=== PATIENT | female | born 1935 | race Two or more races ===

== ENCOUNTER 2022-09-24 09:25 | Outpatient (CLI) | payer MEDICARE, OTHER ==
[2022-09-24] MEDS ORDERED: LIDOCAINE SOLN 4% 50 ML BOTTLE ONE (09:46)
== END 2022-09-24 23:59 | disposition home health service (06) ==
LOC: WOU 09:25
PROVIDERS: ATTEND Podiatrist Foot & Ankle Surgery
DX: I70.235 Atherosclerosis of native arteries of right leg with ulceration of other part of foot (principal); L97.518 Non-pressure chronic ulcer of other part of right foot with other specified severity; E11.52 Type 2 diabetes mellitus with diabetic peripheral angiopathy with gangrene; I96 Gangrene, not elsewhere classified; M79.671 Pain in right foot; Z79.84 Long term (current) use of oral hypoglycemic drugs; Z79.82 Long term (current) use of aspirin
CPT/HCPCS: G0463

== ENCOUNTER 2022-10-01 10:07 | Outpatient (CLI) | payer MEDICARE, OTHER | END 2022-10-01 23:59 | disposition home health service (06) | LOC: WOU 10:07 | PROVIDERS: ATTEND Podiatrist Foot & Ankle Surgery | DX: I70.235 Atherosclerosis of native arteries of right leg with ulceration of other part of foot (principal); L97.518 Non-pressure chronic ulcer of other part of right foot with other specified severity; E11.52 Type 2 diabetes mellitus with diabetic peripheral angiopathy with gangrene; I96 Gangrene, not elsewhere classified; I70.221 Atherosclerosis of native arteries of extremities with rest pain, right leg; M79.671 Pain in right foot; Z79.84 Long term (current) use of oral hypoglycemic drugs | CPT/HCPCS: G0463 ==

== ENCOUNTER 2022-10-08 13:00 | Outpatient (CLI) | payer MEDICARE, OTHER | END 2022-10-08 23:59 | disposition home health service (06) | LOC: WOU 13:00 | PROVIDERS: ATTEND Podiatrist Foot & Ankle Surgery | DX: E11.52 Type 2 diabetes mellitus with diabetic peripheral angiopathy with gangrene (principal); L97.518 Non-pressure chronic ulcer of other part of right foot with other specified severity; I70.261 Atherosclerosis of native arteries of extremities with gangrene, right leg; Z79.84 Long term (current) use of oral hypoglycemic drugs | CPT/HCPCS: G0463 ==

== ENCOUNTER 2022-10-11 09:09 | Outpatient (CLI) | payer MEDICARE, OTHER ==
[2022-10-11] MEDS ORDERED: LIDOCAINE SOLN 4% 50 ML BOTTLE ONE (09:20)
== END 2022-10-11 23:59 | disposition home health service (06) ==
LOC: WOU 09:09
PROVIDERS: ATTEND Podiatrist Foot & Ankle Surgery
DX: E11.52 Type 2 diabetes mellitus with diabetic peripheral angiopathy with gangrene (principal); I96 Gangrene, not elsewhere classified; Z79.84 Long term (current) use of oral hypoglycemic drugs; I70.221 Atherosclerosis of native arteries of extremities with rest pain, right leg; I70.235 Atherosclerosis of native arteries of right leg with ulceration of other part of foot; L97.528 Non-pressure chronic ulcer of other part of left foot with other specified severity; M79.671 Pain in right foot; Z79.82 Long term (current) use of aspirin
CPT/HCPCS: G0463

== ENCOUNTER 2022-10-15 09:21 | Outpatient (CLI) | payer MEDICARE, OTHER ==
[~2022-10-15 09:21] MED LIST: LIDOCAINE SOLN 4% 50 ML BOTTLE ONE
[2022-10-15] MEDS ORDERED: EMPA25TA PO (11:08)
[2022-10-15] MEDS ORDERED: ICOS1CAP PO (11:08)
[2022-10-15] MEDS ORDERED: ASPI-1169 PO (11:08)
[2022-10-15] MEDS ORDERED: NAPR-1009 PO (11:08)
[2022-10-15] MEDS ORDERED: CARV25TA2 PO (11:08)
[2022-10-15] MEDS ORDERED: HYDR-3972 PO (11:08)
[2022-10-15] MEDS ORDERED: METF-440 PO (11:08)
== END 2022-10-15 23:59 | disposition home health service (06) ==
LOC: WOU 09:21
PROVIDERS: ATTEND Podiatrist Foot & Ankle Surgery
DX: E11.52 Type 2 diabetes mellitus with diabetic peripheral angiopathy with gangrene (principal); I96 Gangrene, not elsewhere classified; Z79.84 Long term (current) use of oral hypoglycemic drugs; I70.235 Atherosclerosis of native arteries of right leg with ulceration of other part of foot; L97.528 Non-pressure chronic ulcer of other part of left foot with other specified severity; I70.221 Atherosclerosis of native arteries of extremities with rest pain, right leg; M79.671 Pain in right foot; Z79.82 Long term (current) use of aspirin
CPT/HCPCS: 82962; G0463

== ENCOUNTER 2022-10-15 09:56 | Inpatient (IN) | payer MEDICARE, OTHER ==
[~2022-10-15] VITALS: Ht 154.9 cm; Wt 68.2 kg
--- NOTE | 2022-10-15 10:00 | NUR ---
REceived pt 87 yrs female transfer from wound care center for evaliation on gangarine on rt big toe for 3 month and sob for 3 days and for medcale clearance for surger
--- NOTE | 2022-10-15 10:02 | NUR ---
CAME WITH PICC ON RT UPPER ARM PT CAME WITH SON AT BED SIDE
--- NOTE | 2022-10-15 10:05 | NUR ---
PICC CONSTANCE ABLE TO FLASH NS NOT BLOOD DROW
--- NOTE | 2022-10-15 10:20 | NUR ---
BLOOD DROW BY LAB TACH AND BLOOD CUTURE X 2 DONE , COVID MILVIA SENT TO LAB
[2022-10-15 10:46] LABS: BASOPHILS % (AUTO) 0.3 % (0.0-2.0); HEMOGLOBIN 9.4 g/dL (11.5-14.8); MEAN CORPUSCULAR HGB CONC 30 g/dl (31.0-36.0)
[2022-10-15 11:00] LABS: EOSINOPHILS % (AUTO) 0.3 % (0.0-6.0); HEMATOCRIT 31 % (33-45); LYMPHOCYTES % (AUTO) 19.8 % (20.0-44.0); MEAN CORPUSCULAR VOLUME 70 fL (82-100); MONOCYTES # (AUTO) 0.5 K/uL (0.1-1.30); MONOCYTES % (AUTO) 10.4 % (2.0-12.0); NEUTROPHILS # (AUTO) 3.5 K/uL (1.8-8.9); NEUTROPHILS % (AUTO) 69.2 % (43.0-81.0); PLATELET COUNT (AUTO) 577 K/uL (150-450); RED BLOOD CELL COUNT(AUTO) 4.47 MIL/uL (4.0-5.2)
[2022-10-15] MEDS ORDERED: ICOS1CAP PO (11:08)
[2022-10-15] MEDS ORDERED: EMPA25TA PO (11:08)
[2022-10-15] MEDS ORDERED: NAPR-1009 PO (11:08)
[2022-10-15] MEDS ORDERED: ASPI-1169 PO (11:08)
[2022-10-15] MEDS ORDERED: HYDR-3972 PO (11:08)
[2022-10-15] MEDS ORDERED: METF-440 PO (11:08)
[2022-10-15] MEDS ORDERED: CARV25TA2 PO (11:08)
--- NOTE | 2022-10-15 11:09 | NUR ---
SON AT BED SIDE WILFRED ( SON ) AND NESTOR YANEZ
[2022-10-15 11:16] LABS: CALCIUM, SERUM 7.8 mg/dL (8.5-10.1); CARBON DIOXIDE 28 mmol/L (21-32); CHLORIDE 106 mmol/L (98-107); CREATININE 0.5 mg/dL (0.6-1.3); GLUCOSE 129 mg/dL (74-106); POTASSIUM 4.3 mmol/L (3.5-5.1); SODIUM SERUM 137 mmol/L (136-145); UREA NITROGEN, BLOOD 15 mg/dL (7-18)
--- NOTE | 2022-10-15 11:16 | NUR ---
CALLED NURSING SUP REGARDING PT BED
[2022-10-15 11:21] LABS: ALANINE AMINOTRANSFERASE 17 U/L (12-78); ALBUMIN 1.7 g/dL (3.4-5.0); ALKALINE PHOSPHATASE 108 U/L (46-116); ASPARTATE AMINOTRANSFERASE 34 U/L (15-37); BILIRUBIN,DIRECT 0.1 mg/dL (0.0-0.2); BILIRUBIN,TOTAL 0.2 mg/dL (0.2-1.0); TOTAL PROTEIN, SERUM 5.1 g/dL (6.4-8.2)
[2022-10-15] MEDS ORDERED: Z GUARD REMEDY 4 OZ OINT TP PRN (11:30)
[2022-10-15] MEDS ORDERED: MAG HYDROX/AL HYDROX/SIMETH 30 ML UDC PO PRN (11:30)
[2022-10-15] MEDS ORDERED: DEXTROSE 50%-WATER 50 ML DISP.SYRIN IV PRN (11:30)
[2022-10-15] MEDS ORDERED: HYDROCODONE/APAP 5/325MG TABLET PO PRN (11:30)
[2022-10-15] MEDS ORDERED: ONDANSETRON HCL/PF 4 MG/2 ML VIAL IVP PRN (11:30)
[2022-10-15] MEDS ORDERED: MAGNESIUM HYDROXIDE 30 ML UDC PO PRN (11:30)
[2022-10-15] MEDS ORDERED: ZOLPIDEM TARTRATE 5 MG TABLET PO PRN (11:30)
[2022-10-15] MEDS ORDERED: ACETAMINOPHEN 325 MG TABLET PO PRN (11:30)
--- NOTE | 2022-10-15 11:56 | NUR ---
BED GIVEN 306-2
[2022-10-15] MEDS: BLOOD SUGAR DIAGNOSTIC 1 EACH STRIP IN SCH ×3 (12:22→22:00)
--- NOTE | 2022-10-15 12:56 | NUR ---
HAND OFF JOANNA .Bacilio RN TO ROOM 306-2 VIA GARJERMAINE STABLE VS AWAKE AND ALERT
[2022-10-15] MEDS ORDERED: MEROPENEM 1 G in IV NS 0.9% 100 ML IV SCH (13:00)
[2022-10-15] MEDS ORDERED: FUROSEMIDE 20 MG/2 ML VIAL IV ONE (13:00)
[2022-10-15] MEDS ORDERED: ASPIRIN 81 MG TAB.CHEW ONE (13:06)
[2022-10-15] MEDS: ASPIRIN 81 MG TAB.CHEW PO SCH (13:07)
--- NOTE | 2022-10-15 13:30 | NUR ---
TELEMETRY ADMIT FROM ER AFTER REPORT RECEIVED FROM MARTIN RN. PATIENT ORIENTED TO PRIMARY RN, UNIT, ROOM, BED, AND UNIT POLICIES REGARDING PATIENT CARE AND VISITING HOURS. PATIENT NOW ON CONTINUOUS TELEMETRY MONITORING. READING ON ARRIVAL IS AFIB 79. PATIENT PLACED ON BEDSIDE OXYGEN, WEIGHED BY BEDSCALE AND ENCOURAGED TO CALL IF THEY NEED SOMETHING. ALL QUESTIONS AND CONCERNS ADDRESSED, PATIENT VERBALIZED UNDERSTANDING.
[2022-10-15 16:00] VITALS: BP 127/75
[2022-10-15] MEDS: MEROPENEM 1 G in IV NS 0.9% 100 ML IV SCH (16:13)
[2022-10-15] MEDS ORDERED: Medication Not On Formulary EA (Icosapent Ethyl (Vascepa) 2 GM) PO SCH (17:00)
[2022-10-15] MEDS: INSULIN REGULAR, HUMAN 100 UNIT/ML 3 ML VIAL SQ PRN (17:50)
--- NOTE | 2022-10-15 18:19 | NUR ---
CHANGE OF SHIFT REPORT PATIENT RESTING COMFORTABLY IN BED. NO S/S OR C/O PAIN OR DISTRESS NOTED. SIDE RAILS UP X2, CALL LIGHT LEFT WITHIN REACH. PT KEPT CLEAN, DRY, AND COMFORTABLE. NO SIGNIFICANT CHANGES SINCE ADMISSION WILL GIVE REPORT TO SHAWNA RN.
--- NOTE | 2022-10-15 19:30 | NUR ---
TELERN AWAKE, RESTING UNDERSTANDS BASIC AZERI. NO SOB, O2 MAINTAINED ALL NEEDS ATTENDED. A FIB ON THE MONITOR. SAFETY PRECAUTIONS EMPHASIZED PLAN OF CARE. APPEARS TO UNDERSTAND. CONTINUED MONITORING
[2022-10-15 20:00] VITALS: BP 127/70
[2022-10-15] MEDS: VANCOMYCIN 1 GM in IV D5W 250ml IV SCH (21:10)
[2022-10-15] MEDS: CARVEDILOL 12.5 MG TABLET PO SCH (21:47)
--- NOTE | 2022-10-15 22:20 | NUR ---
TELERN DUE MEDS ADMINISTERED, AWARE IF MEDS SHE TAKES, V/S STABLE. ENCOURAGED TO SPACE ACTIVITY, OFFERED BSC, DECLINED FOR NOW.
[2022-10-16 02:25] VITALS: BP 111/72
[2022-10-16] MEDS: MEROPENEM 1 G in IV NS 0.9% 100 ML IV SCH (04:51)
--- NOTE | 2022-10-16 04:53 | NUR ---
TELERN RIGHT ARM SWOLLEN WARM AND RED, ELEVATED, COLD AND WARM COMPRESS, MONITORED. INFORMED [facility] DIRECTOR FIRE SPRINKLER APPARATUS INSPECTOR. FOR VENOUS DUPLEX TODAY.
[2022-10-16 05:00] VITALS: BP 125/61
[2022-10-16] MEDS: BLOOD SUGAR DIAGNOSTIC 1 EACH STRIP IN SCH ×4 (05:51→21:33)
--- NOTE | 2022-10-16 05:51 | NUR ---
TELERN ASSISTED TO RESTROOM, VOIDED 500 CC , SOB ON MIN EXERTION. REMAINS AFIB CONTROLLED RATE OF 89 .CONTINUED MONITORING
[2022-10-16 06:19] LABS: BASOPHILS % (AUTO) 1.1 % (0.0-2.0); EOSINOPHILS % (AUTO) 0.5 % (0.0-6.0); HEMATOCRIT 29 % (33-45); HEMOGLOBIN 8.8 g/dL (11.5-14.8); LYMPHOCYTES # (AUTO) 0.8 K/uL (0.8-4.8); LYMPHOCYTES % (AUTO) 17.8 % (20.0-44.0); MEAN CORPUSCULAR HGB CONC 30 g/dl (31.0-36.0); MEAN CORPUSCULAR VOLUME 71 fL (82-100); MONOCYTES # (AUTO) 0.5 K/uL (0.1-1.30); NEUTROPHILS # (AUTO) 3.1 K/uL (1.8-8.9); NEUTROPHILS % (AUTO) 69.6 % (43.0-81.0); PLATELET COUNT (AUTO) 576 K/uL (150-450); RED BLOOD CELL COUNT(AUTO) 4.16 MIL/uL (4.0-5.2); WHITE BLOOD COUNT (AUTO) 4.5 K/uL (4.3-11.0)
[2022-10-16 06:33] LABS: CALCIUM, SERUM 7.7 mg/dL (8.5-10.1); CARBON DIOXIDE 28 mmol/L (21-32); CHLORIDE 105 mmol/L (98-107); CREATININE 0.5 mg/dL (0.6-1.3); GLUCOSE 97 mg/dL (74-106); MAGNESIUM 2.2 mg/dL (1.8-2.4); PHOSPHORUS 3.1 mg/dL (2.5-4.9); POTASSIUM 4.1 mmol/L (3.5-5.1); SODIUM SERUM 137 mmol/L (136-145); UREA NITROGEN, BLOOD 11 mg/dL (7-18)
[2022-10-16 07:00] VITALS: BP 128/67
--- NOTE | 2022-10-16 07:50 | NUR ---
RN OPENING NOTE PATIENT AWAKE IN BED RESTING, A/O X 3. NO S/S OF PAIN NOTED AT THIS TIME. ON 2L OXYGEN VIA NC, BREATHING EVEN UNLABORED, NO DISTRESS OR SHORTNESS OF BREATH NOTED AT THIS TIME. IV ACCESS ANDREWS PICC-LINE, INTACT PATENT AND FLUSHING WELL. PATIENT WITH EXTERNAL ADVICE LINE RN WITH CURRENT READING OF A-FIB AND HR OF 86, NO CARDIAC DISTRESS NOTED. FALL AND SAFETY MEASURES IN PLACE, BED ALARM ON, BED IN LOW AND LOCK POSITION, CALL LIGHT AND TABLE WITHIN EASY REACH, SIDE RAILS UP X2. WILL CONTINUE TO MONITOR.
--- NOTE | 2022-10-16 08:10 | NUR ---
WOUND CARE CONSULT: PT EATING BREAKFAST AT THIS TIME. PT IS AMBULATORY WITH ASSISTANCE AND CONTINENT. DR DEL VALLE NOTIFIED OF PT ROOM NUMBER AND ADMISSION. MD IN AGREEMENT WITH PLAN OF CARE.
[2022-10-16] MEDS: FUROSEMIDE 40 MG/4 ML VIAL IV SCH ×4 (09:14→17:45)
[2022-10-16] MEDS: POTASSIUM CHLORIDE 20 MEQ TAB.PRT.SR PO SCH ×3 (09:15→11:00)
[2022-10-16] MEDS: EMPAGLIFLOZIN 25 MG TABLET PO SCH (09:15)
[2022-10-16] MEDS: CARVEDILOL 12.5 MG TABLET PO SCH ×2 (09:15→21:37)
[2022-10-16 10:40] LABS: THYROID STIMULATING HORMONE 2.089 uIU/mL (0.358-3.74)
[2022-10-16 12:00] VITALS: BP 129/63
[2022-10-16] MEDS: CEFEPIME 2 GM in IV D5W 100 ML IV SCH ×3 (14:11→21:56)
[2022-10-16] MEDS ORDERED: ENOXAPARIN SODIUM 40 MG/0.4 ML DISP.SYRIN SQ SCH (14:30)
[2022-10-16 16:00] VITALS: BP 106/60
--- NOTE | 2022-10-16 19:49 | NUR ---
RN CLOSING NOTE PATIENT AWAKE IN BED RESTING, A/O X 3. NO S/S OF PAIN NOTED AT THIS TIME. ON 2L OXYGEN VIA NC, BREATHING EVEN UNLABORED, NO DISTRESS OR SHORTNESS OF BREATH NOTED AT THIS TIME. IV ACCESS ANDREWS PICC-LINE, INTACT PATENT AND FLUSHING WELL. PATIENT WITH EXTERNAL WEED COOKING OPERATOR WITH CURRENT READING OF A-FIB AND HR OF 94, NO CARDIAC DISTRESS NOTED. SCHEDULE MEDICATIONS ADMINISTERED. WOUND CARE IMPLEMENTED. FALL AND SAFETY MEASURES IN PLACE, BED ALARM ON, BED IN LOW AND LOCK POSITION, CALL LIGHT AND TABLE WITHIN EASY REACH, SIDE RAILS UP X2. ALL NEEDS ATTENDED AND ANTICIPATED. WILL ENDORSE TO CONCRETE TILE MACHINE OPERATOR NURSE.
[2022-10-16] MEDS: VANCOMYCIN 1 GM in IV D5W 250ml IV SCH (20:19)
[2022-10-16] MEDS ORDERED: ENOXAPARIN SODIUM 80 MG/0.8 ML DISP.SYRIN SQ SCH (21:00)
[2022-10-16] MEDS: INSULIN REGULAR, HUMAN 100 UNIT/ML 3 ML VIAL SQ PRN (21:35)
[2022-10-17 00:11] VITALS: BP 108/54
[2022-10-17] MEDS: CEFEPIME 2 GM in IV D5W 100 ML IV SCH ×3 (05:27→21:48)
[2022-10-17 06:00] LABS: BASOPHILS % (AUTO) 0.5 % (0.0-2.0); EOSINOPHILS % (AUTO) 0.8 % (0.0-6.0); HEMATOCRIT 28 % (33-45); HEMOGLOBIN 8.6 g/dL (11.5-14.8); LYMPHOCYTES # (AUTO) 0.8 K/uL (0.8-4.8); LYMPHOCYTES % (AUTO) 17.5 % (20.0-44.0); MEAN CORPUSCULAR HGB CONC 31 g/dl (31.0-36.0); MEAN CORPUSCULAR VOLUME 69 fL (82-100); MONOCYTES # (AUTO) 0.6 K/uL (0.1-1.30); MONOCYTES % (AUTO) 13.4 % (2.0-12.0); NEUTROPHILS % (AUTO) 67.8 % (43.0-81.0); PLATELET COUNT (AUTO) 540 K/uL (150-450); RED BLOOD CELL COUNT(AUTO) 4.05 MIL/uL (4.0-5.2); WHITE BLOOD COUNT (AUTO) 4.4 K/uL (4.3-11.0)
[2022-10-17 06:14] LABS: ALANINE AMINOTRANSFERASE 12 U/L (12-78); ALBUMIN 1.5 g/dL (3.4-5.0); ALKALINE PHOSPHATASE 89 U/L (46-116); ASPARTATE AMINOTRANSFERASE 12 U/L (15-37); BILIRUBIN,TOTAL 0.2 mg/dL (0.2-1.0); CALCIUM, SERUM 7.6 mg/dL (8.5-10.1); CARBON DIOXIDE 34 mmol/L (21-32); CHLORIDE 103 mmol/L (98-107); CREATININE 0.5 mg/dL (0.6-1.3); GLUCOSE 104 mg/dL (74-106); PHOSPHORUS 3.2 mg/dL (2.5-4.9); POTASSIUM 3.6 mmol/L (3.5-5.1); SODIUM SERUM 140 mmol/L (136-145); TOTAL PROTEIN, SERUM 4.9 g/dL (6.4-8.2); UREA NITROGEN, BLOOD 11 mg/dL (7-18)
--- NOTE | 2022-10-17 06:18 | NUR ---
END OF SHIFT REPORT Patient in bed, Alert Oriented x3. Oxygen sat high 90's in 2L NC. Ambulating to the bathroom FWW, denies sob with exertion. ANDREWS Midline intact, On IV abx. Afebrile during the shift. Right toe gangrene, dressing C/D/I. Fall precaution maintained. Plan for US Thoracentesis, Right great toe amputation. Will endorse to oncoming RN. Addendum: 10/17/22 at 0620 by GALILEO SUMMERS RN CONTINUE NOTES BELOW AFib controlled in the Tele monitor HR 80's. Patient denies chest pain.
[2022-10-17] MEDS: BLOOD SUGAR DIAGNOSTIC 1 EACH STRIP IN SCH ×4 (06:58→22:14)
[2022-10-17] MEDS: INSULIN REGULAR, HUMAN 100 UNIT/ML 3 ML VIAL SQ PRN ×2 (06:58→22:47)
[2022-10-17 07:00] VITALS: BP 110/51
--- NOTE | 2022-10-17 07:55 | NUR ---
RN OPENING NOTE PATIENT AWAKE IN BED RESTING, A/O X 3. NO S/S OF PAIN NOTED AT THIS TIME. ON 2L OXYGEN VIA NC, BREATHING EVEN UNLABORED, NO DISTRESS OR SHORTNESS OF BREATH NOTED AT THIS TIME. IV ACCESS VIRGIE MIDLINE, INTACT PATENT AND FLUSHING WELL. PATIENT WITH EXTERNAL BOAT CREW DECK HAND WITH CURRENT READING OF A-FIB AND HR OF 86, NO CARDIAC DISTRESS NOTED. FALL AND SAFETY MEASURES IN PLACE, BED ALARM ON, BED IN LOW AND LOCK POSITION, CALL LIGHT AND TABLE WITHIN EASY REACH, SIDE RAILS UP X2. WILL CONTINUE TO MONITOR.
[2022-10-17] MEDS: EMPAGLIFLOZIN 25 MG TABLET PO SCH (08:46)
[2022-10-17] MEDS: CARVEDILOL 12.5 MG TABLET PO SCH ×4 (08:46→22:14)
[2022-10-17 10:10] LABS: LYMPHOCYTES % (MANUAL) 19 % (16-48); MONOCYTES % (MANUAL) 13 % (0-11.0); NEUTROPHILS % (MANUAL) 68 (42-76)
--- NOTE | 2022-10-17 10:30 | NUR ---
RN NOTE PATIENT THORACENTESIS WAS DONE TODAY, PATIENT TOLERATED PROCEDURE WELL, PATIENT V/S WERE TAKEN, STABLE, CHEST X-RAY ORDERED, PATIENT IS RESTING IN ROOM COMFORTABLY.
[2022-10-17] MEDS: ASPIRIN 81 MG TAB.CHEW PO SCH (11:30)
[2022-10-17 12:00] VITALS: BP 99/75
[2022-10-17 16:00] VITALS: BP 98/56
--- NOTE | 2022-10-17 18:53 | NUR ---
RN CLOSING NOTE PATIENT AWAKE IN BED RESTING, A/O X 3. NO S/S OF PAIN NOTED AT THIS TIME. ON 2L OXYGEN VIA NC, BREATHING EVEN UNLABORED, NO DISTRESS OR SHORTNESS OF BREATH NOTED AT THIS TIME. IV ACCESS ANDREWS PICC-LINE, INTACT PATENT AND FLUSHING WELL. PATIENT WITH EXTERNAL DIVISION SUPERVISOR WITH CURRENT READING OF A-FIB AND HR OF 94, NO CARDIAC DISTRESS NOTED. SCHEDULE MEDICATIONS ADMINISTERED. WOUND CARE IMPLEMENTED. FALL AND SAFETY MEASURES IN PLACE, BED ALARM ON, BED IN LOW AND LOCK POSITION, CALL LIGHT AND TABLE WITHIN EASY REACH, SIDE RAILS UP X2. ALL NEEDS ATTENDED AND ANTICIPATED. WILL ENDORSE TO INSURANCE ADMINISTRATOR NURSE.
--- NOTE | 2022-10-17 19:30 | NUR ---
AREA COUNSELOR OPENING NOTES RECEIVED PATIENT AWAKE IN BED RESTING, A/O X 3. NO S/S OF PAIN NOTED AT THIS TIME. ON 2L OXYGEN VIA NC, BREATHING EVEN UNLABORED, NO DISTRESS OR SHORTNESS OF BREATH NOTED AT THIS TIME. IV ACCESS VIRGIE MIDLINE, INTACT PATENT AND FLUSHING WELL. PATIENT WITH EXTERNAL CUPOLA CHARGER WITH CURRENT READING OF A-FIB AND HR OF 93, NO CARDIAC DISTRESS NOTED. FALL AND SAFETY MEASURES IN PLACE, BED ALARM ON, BED IN LOW AND LOCK POSITION, CALL LIGHT AND TABLE WITHIN EASY REACH, SIDE RAILS UP X2. WILL CONTINUE TO MONITOR.
[2022-10-17 20:00] VITALS: BP_SYST 106; BP_SYST 110; BP_DIAS 38; BP_DIAS 60
[2022-10-17] MEDS: VANCOMYCIN 1 GM in IV D5W 250ml IV SCH (20:05)
[2022-10-17] MEDS: ZOLPIDEM TARTRATE 5 MG TABLET PO PRN (22:19)
--- NOTE | 2022-10-17 22:25 | NUR ---
RN NOTES- AMBIEN GIVEN PATIENT ASKED FOR SLEEPING PILL INSTEAD OF PAIN PILL. AMBIEN 5MG GIVEN PRN PER DR. RAY. PATIENT VERBALIZED THAT PAIN PILLS CAUSE BAD SIDE EFFECTS ON HER. WILL CONTINUE TO MONITOR PATIENT.
[2022-10-18] VITALS (37 sets, daily range): BP systolic 92–137; BP diastolic 40–75
[2022-10-18] MEDS: CEFEPIME 2 GM in IV D5W 100 ML IV SCH (04:12)
[2022-10-18 05:59] LABS: CALCIUM, SERUM 7.5 mg/dL (8.5-10.1); CARBON DIOXIDE 33 mmol/L (21-32); CHLORIDE 102 mmol/L (98-107); CREATININE 0.5 mg/dL (0.6-1.3); GLUCOSE 110 mg/dL (74-106); POTASSIUM 3.7 mmol/L (3.5-5.1); SODIUM SERUM 138 mmol/L (136-145); UREA NITROGEN, BLOOD 10 mg/dL (7-18)
[2022-10-18 06:05] LABS: BASOPHILS % (AUTO) 0.6 % (0.0-2.0); EOSINOPHILS % (AUTO) 1.2 % (0.0-6.0); HEMATOCRIT 26 % (33-45); HEMOGLOBIN 8.1 g/dL (11.5-14.8); LYMPHOCYTES # (AUTO) 0.9 K/uL (0.8-4.8); LYMPHOCYTES % (AUTO) 19.4 % (20.0-44.0); MEAN CORPUSCULAR HGB CONC 31 g/dl (31.0-36.0); MEAN CORPUSCULAR VOLUME 69 fL (82-100); MONOCYTES # (AUTO) 0.5 K/uL (0.1-1.30); MONOCYTES % (AUTO) 12.2 % (2.0-12.0); NEUTROPHILS % (AUTO) 66.6 % (43.0-81.0); PLATELET COUNT (AUTO) 509 K/uL (150-450); RED BLOOD CELL COUNT(AUTO) 3.84 MIL/uL (4.0-5.2); WHITE BLOOD COUNT (AUTO) 4.5 K/uL (4.3-11.0)
[2022-10-18] MEDS: BLOOD SUGAR DIAGNOSTIC 1 EACH STRIP IN SCH ×4 (06:39→21:11)
[2022-10-18] MEDS: INSULIN REGULAR, HUMAN 100 UNIT/ML 3 ML VIAL SQ PRN ×2 (06:40→17:39)
--- NOTE | 2022-10-18 06:51 | NUR ---
RN NOTES PATIENT FOR RIGHT GREAT TOE AMPUTATION, CONSENTS SIGNED. NPO SINCE MIDNIGHT. V/S STABLE AND BLOOD SUGAR LEVEL IS 104. DAUGHTER WAS INFORMED LAST NIGHT. WILL ENDORSE TO THE NEXT SHIFT.
--- NOTE | 2022-10-18 06:57 | NUR ---
[place] ATTORNEY CLOSING NOTES PATIENT AWAKE AND ALERT. A/O X 4. ON RA, BREATHING EVEN UNLABORED, NO DISTRESS OR SHORTNESS OF BREATH NOTED AT THIS TIME. IV ACCESS VIRGIE MIDLINE, INTACT PATENT AND FLUSHING WELL. PATIENT WITH EXTERNAL DRAG OUT MAN WITH CURRENT READING OF A-FIB AND HR OF 98, NO CARDIAC DISTRESS NOTED. ALL DUE IV MEDS GIVEN. NPO SINCE MIDNIGHT. FALL AND SAFETY MEASURES MAINTAINED, BED ALARM ON, BED IN LOW AND LOCK POSITION, CALL LIGHT AND TABLE WITHIN EASY REACH, SIDE RAILS UP X2. WILL ENDORSE TO THE NEXT SHIFT.
--- NOTE | 2022-10-18 07:07 | NUR ---
CORRECTIONAL SUBSTANCE ABUSE COUNSELOR OPENING NOTES RECEIVED PATIENT AWAKE IN BED, A/Ox3-4, ABLE TO MAKE NEEDS KNOWN, L EYE BLINDNESS. ON 2L O2 VIA NC, NO S/S OF RESPIRATORY DISTRESS. ON TELE MONITORING SHOWING SINUS RHYTHM HR 96. IV ACCESS VIRGIE MIDLINE S/L. INTACT AND PATENT. PATIENT CONTINENT WITH BRP, USES FWW. PATIENT TAKEN DOWN FOR SURGERY @0705, ACCOMPANIED BY TWO OR STAFF. WILL WAIT FOR PATIENT TO RETURN.
[2022-10-18] MEDS ORDERED: ANESTHESIA TRAY IN PYXIS 1 EA TRAY MC ONE (07:16)
[2022-10-18] MEDS ORDERED: LIDOCAINE 1% INJ 50 ML MDV IJ ONE (07:17)
[2022-10-18] MEDS ORDERED: BUPIVACAINE 0.25% 75 MG/30 ML VIAL ONE (07:17)
[2022-10-18] MEDS ORDERED: BUPIVACAINE 0.5 % PF 150 MG/30 ML VIAL ONE (07:17)
[2022-10-18] MEDS: CARVEDILOL 12.5 MG TABLET PO SCH ×3 (09:00→21:02)
[2022-10-18] MEDS: EMPAGLIFLOZIN 25 MG TABLET PO SCH (09:00)
--- NOTE | 2022-10-18 09:00 | NUR ---
RN NOTES RECEIVED PT FROM OR FOR CLOSE MONITORING , PT IS DRAWZY , FOLLOWS SIMPLE COMMAND, ON 2L O2 N/C , O2 SAT WNL, ON TELE SR HR IN 80'S , IV SITE CDI, SR UP x3, CALL LIGHT WITHIN EASY REACH, BED LOCKED AND IN LOWEST POSITION, CONTINUE TO MONITOR
[2022-10-18 10:38] LABS: ABG BASE EXCESS 2.8 mmol/L; ABG OXYGEN SATURATION 95.5 % (92.0-98.5); ABG PCO2 43.5 mmHg (35.0-45.0); ABG PO2 89.5 mmHg (75.0-100.0); AaDO2 73.3 mmHg; COHb 0.1 % (0.5-1.5); MetHb 0.1 % (0.0-1.5); O2Hb 95.3 % (94.0-97.0); VENT MODE, BG N/C
--- NOTE | 2022-10-18 11:00 | NUR ---
RN NOTES PT VERY SENSETIVE TO HAVE BP CUFF ON HER ARM , REFUSED TO HAVE IT ON THE ARMS , BP CUFF PLACED ON LEFT CALF .
[2022-10-18 13:30] LABS: EOSINOPHILS % (MANUAL) 3 % (0-4); LYMPHOCYTES % (MANUAL) 17 % (16-48); MONOCYTES % (MANUAL) 11 % (0-11.0); NEUTROPHILS % (MANUAL) 69 (42-76)
--- NOTE | 2022-10-18 16:14 | NUR ---
RN NOTES PT VOIDED 30 CC URINE OUTPUT , C/O PAIN ON HER ABD, HERNANDEZ INSERTED PER HEAD AND NECK SURGEON ORDER , 350 CC YELLOW CLEAR , URINE OUT PUT DRAINED TO THE BAG, HEAD AND NECK SURGEON NOTIFIED
--- NOTE | 2022-10-18 18:00 | NUR ---
RN NOTES PT AWAKE AND ALERT , VSS STABLE, SON AT THE BEDSIDE, NO DISTRESS NOTED, NO SIGNFICANT CHANGES NOTED , WILL ENDORSE TO DIVIDING MACHINE OPERATOR NURSE FOR CONTINUITY OF CARE
[2022-10-18] MEDS: ZOLPIDEM TARTRATE 5 MG TABLET PO PRN (21:10)
--- NOTE | 2022-10-18 21:29 | NUR ---
RN NOTE Patient in bed, on high ibarra's, AO x 3, in no acute distress, breathing unlabored, Afib on the monitor, HR is 96. VIRGIE midline patent and flushing well, saline locked. Wound dressing at R big toe clean, dry and intact. Safety measures in place, bed is locked and at lowest position, HOB elevated, bed alarm on, call light within reach of patient. Will continue to monitor and reassess.
--- NOTE | 2022-10-18 22:08 | NUR ---
RN NOTE Report given to Sharon for continuation of care
[2022-10-19] VITALS (23 sets, daily range): BP systolic 90–158; BP diastolic 40–112
[2022-10-19 05:11] LABS: CALCIUM, SERUM 7.8 mg/dL (8.5-10.1); CARBON DIOXIDE 32 mmol/L (21-32); CHLORIDE 104 mmol/L (98-107); CREATININE 0.6 mg/dL (0.6-1.3); GLUCOSE 100 mg/dL (74-106); SODIUM SERUM 139 mmol/L (136-145); UREA NITROGEN, BLOOD 12 mg/dL (7-18)
--- NOTE | 2022-10-19 05:33 | NUR ---
RN NOTE Assumed care, patient tolerating 3L via NC, saturation at 97%, afib on the monitor HR is 83, awaiting CXR result. will cont to monitor.
[2022-10-19] MEDS: BLOOD SUGAR DIAGNOSTIC 1 EACH STRIP IN SCH ×4 (07:24→21:32)
--- NOTE | 2022-10-19 07:50 | NUR ---
ICU/RN PT STABLE ON 2L O2 NC.
[2022-10-19] MEDS: EMPAGLIFLOZIN 25 MG TABLET PO SCH (08:03)
[2022-10-19] MEDS: CARVEDILOL 12.5 MG TABLET PO SCH ×2 (08:03→21:32)
--- NOTE | 2022-10-19 10:36 | NUR ---
ICU/RN REPORT GIVEN TO KAL LOCKE.
[2022-10-19] MEDS: ASPIRIN 81 MG TAB.CHEW PO SCH (10:37)
--- NOTE | 2022-10-19 11:35 | NUR ---
Patient arrived as transfer from ICU, bed 254, via bed, alert and oriented x 4,calm, denying pain,no SOB on oxygen via nasal cannula @ 2 LPM. Vital signs stable. Afebrile. Safety precautions in place : bed alarm on; bed brakes locked on; bed in lowest position; bed side rails up x 3; and call stephenson/light within pt's reach. Will continue to care for and monitor patient per hospitalist POC.
[2022-10-19] MEDS: INSULIN REGULAR, HUMAN 100 UNIT/ML 3 ML VIAL SQ PRN ×3 (12:54→23:04)
[2022-10-19] MEDS: GLUCERNA SHAKE 237 ML CAN PO SCH (17:39)
--- NOTE | 2022-10-19 18:52 | NUR ---
FRUIT PACKER CLOSING NOTE: PATIENT AWAKE AND ALERT. A/O X 4. ON OXYGEN @ 2 LPM VIA NC. BREATHING IS EVEN AND UNLABORED. NO DISTRESS OR SHORTNESS OF BREATH NOTED AT THIS TIME. IV ACCESS VIRGIE MIDLINE, INTACT PATENT AND FLUSHING WELL. PATIENT WITH EXTERNAL ASSOCIATE PROFESSOR OF FORESTRY WITH CURRENT READING OF A-FIB CONTROLLED WITH HR FLUCTUATING IN 80S TO 100S. NO CARDIAC DISTRESS NOTED. ALL DUE MEDS GIVEN. FALL AND SAFETY MEASURES MAINTAINED, BED ALARM ON, BED IN LOW AND LOCK POSITION, CALL LIGHT AND TABLE WITHIN EASY REACH, SIDE RAILS UP X2. WILL ENDORSE TO PRIVATE INQUIRY AGENT RNGALINDO, FOR ERIN.
--- NOTE | 2022-10-19 19:40 | NUR ---
DESIGN CELL ENGINEER OPENING NOTES RECEIVED PATIENT AWAKE IN BED RESTING, A/O X 3-4. NO S/S OF PAIN NOTED AT THIS TIME. ON 2L OXYGEN VIA NC, BREATHING EVEN UNLABORED, NO DISTRESS OR SHORTNESS OF BREATH NOTED AT THIS TIME. IV ACCESS VIRGIE MIDLINE, INTACT PATENT AND FLUSHING WELL. PATIENT WITH EXTERNAL SIXTH GRADE TEACHER WITH CURRENT READING OF A-FIB CONTROLLED AND HR OF 90, NO CARDIAC DISTRESS NOTED. ON HERNANDEZ CATH DRAINING YELLOW COLORED URINE. FALL AND SAFETY MEASURES IN PLACE, BED ALARM ON, BED IN LOW AND LOCK POSITION, CALL LIGHT AND TABLE WITHIN EASY REACH, SIDE RAILS UP X2. WILL CONTINUE TO MONITOR.
[2022-10-19] MEDS: ZOLPIDEM TARTRATE 5 MG TABLET PO PRN (21:01)
--- NOTE | 2022-10-19 21:01 | NUR ---
RN NOTES- AMBIEN PATIENT ASKED FOR SLEEPING PILL INSTEAD OF PAIN PILL. AMBIEN 5MG GIVEN PRN. WILL CONTINUE TO MONITOR PATIENT.
[2022-10-20] VITALS: BP 112/58
[2022-10-20] MEDS: ALBUTEROL FS 2.5 MG/0.5 ML VIAL.NEB NEB PRN (03:43)
[2022-10-20] MEDS: IPRATROPIUM NEB FS 0.5 MG/2.5 ML AMPUL.NEB NEB PRN (03:43)
[2022-10-20 04:00] VITALS: BP 109/58
--- NOTE | 2022-10-20 04:30 | NUR ---
RN NOTES PATIENT WAS HAVING SOB AND AUDIBLE WHEEZING. CHEST XRAY ORDERED STAT AND BREATHING TREATMENT ORDERED PER DR. BROWN. HOB ELEVATED. WILL CONTINUE TO MONITOR PATIENT.
[2022-10-20 06:38] LABS: BASOPHILS % (AUTO) 0.5 % (0.0-2.0); EOSINOPHILS % (AUTO) 2.1 % (0.0-6.0); HEMATOCRIT 28 % (33-45); HEMOGLOBIN 8.5 g/dL (11.5-14.8); LYMPHOCYTES # (AUTO) 0.7 K/uL (0.8-4.8); LYMPHOCYTES % (AUTO) 18.6 % (20.0-44.0); MEAN CORPUSCULAR HGB CONC 30 g/dl (31.0-36.0); MEAN CORPUSCULAR VOLUME 69 fL (82-100); MONOCYTES # (AUTO) 0.5 K/uL (0.1-1.30); MONOCYTES % (AUTO) 12.6 % (2.0-12.0); NEUTROPHILS # (AUTO) 2.5 K/uL (1.8-8.9); NEUTROPHILS % (AUTO) 66.2 % (43.0-81.0); PLATELET COUNT (AUTO) 478 K/uL (150-450); RED BLOOD CELL COUNT(AUTO) 4.14 MIL/uL (4.0-5.2); WHITE BLOOD COUNT (AUTO) 3.8 K/uL (4.3-11.0)
[2022-10-20 07:06] LABS: CALCIUM, SERUM 7.8 mg/dL (8.5-10.1); CREATININE 0.6 mg/dL (0.6-1.3)
--- NOTE | 2022-10-20 07:51 | NUR ---
ASSISTANT SUPERINTENDENT FOR CURRICULUM CLOSING NOTES PATIENT AWAKE AND ALERT. A/O X 4. ON 2L OXYGEN VIA NC, NO DISTRESS OR SHORTNESS OF BREATH NOTED AT THIS TIME. IV ACCESS VIRGIE MIDLINE, INTACT PATENT AND FLUSHING WELL. PATIENT WITH EXTERNAL SEO COORDINATOR WITH CURRENT READING OF A-FIB CONTROLLED AND HR OF 90, NO CARDIAC DISTRESS NOTED. ALL DUE IV MEDS GIVEN. FALL AND SAFETY MEASURES MAINTAINED, BED ALARM ON, BED IN LOW AND LOCK POSITION, CALL LIGHT AND TABLE WITHIN EASY REACH, SIDE RAILS UP X2. WILL ENDORSE TO THE NEXT SHIFT.
[2022-10-20 08:00] VITALS: BP_SYST 104; BP_SYST 124; BP_DIAS 58; BP_DIAS 59
--- NOTE | 2022-10-20 08:21 | NUR ---
RN OPENING NOTE RECEIVED PATIENT IN BED AO x 3-4 ANDORRAN SPEAKING, ABLE TO RESPONDS PHYSICAL STIMULI. RESPIRATORY EVEN AND UNLABORED IN OXYGEN AT 2 Ls VIA NC. IN NO ACUTE DISTRESS OBSERVED. SKIN IS WARM TO TOUCH, KEEP CLEAN/DRY. KEPT ELEVATED HOB FOR ASPIRATION PRECAUTION/ENSURE AIRWAY, ALSO LOWEST BED POSITIONED. BED ALARM IS ON AT ALL THE TIME FOR SAFETY. CALL LIGHT WITHIN REACH, WILL CONTINUE TO MONITOR.
[2022-10-20] MEDS: GLUCERNA SHAKE 237 ML CAN PO SCH ×2 (08:37→17:18)
[2022-10-20] MEDS: BLOOD SUGAR DIAGNOSTIC 1 EACH STRIP IN SCH ×4 (08:37→22:30)
[2022-10-20] MEDS: CARVEDILOL 12.5 MG TABLET PO SCH ×2 (08:37→21:10)
[2022-10-20] MEDS: EMPAGLIFLOZIN 25 MG TABLET PO SCH (08:38)
--- NOTE | 2022-10-20 10:00 | NUR ---
THE PATIENT WAS ASSISTED TO THE BATHROOM FOR BM AND BACK INTO BED. THE PATIENT STARTS TO COMPLAIN TO THE PRIMARY NURSE DUE TO TOUCHED THE PATENT'S FOOT ACCIDENTALLY DURING FIXING HERNANDEZ CATHETER. APOLOGIZED AND ASKED THE PATIENT IF SHE WANTS PATIENT MEDICINE BUT SHE REFUSED. REMAIN MONITORED THE PATIENT'S FOR SAFETY. THE DAUGHTER CAME THIS AFTERNOON AND SAID "YOU TOUCHED MY MOTHER'S FOOT INTENTIONALLY, ARE BAD BEHAVIOR, I'LL REPORT HEAD OF QUATER ABOUT YOU, YOU SHOULD EMPTY THE BAG (URIN BAG)". REPORTED CHARGE NURSE REGARDING ABOVE THE ISSUES. Addendum: 10/20/22 at 1901 by JARROD CAPPS RN LISA JAMES
--- NOTE | 2022-10-20 10:00 | NUR ---
THE PATIENT WAS ASSISTED TO THE BATHROOM FOR BM AND BACK INTO BED. THE PATIENT STARTS TO COMPLAIN TO THE PRIMARY NURSE DUE TO TOUCHED THE PATENT'S FOOT ACCIDENTALLY DURING FIXING HERNANDEZ CATHETER. APOLOGIZED AND ASKED THE PATIENT IF SHE WANTS PAIN MEDICINE BUT SHE REFUSED. REMAIN MONITORED THE PATIENT'S FOR SAFETY. THE DAUGHTER CAME THIS AFTERNOON AND SAID "YOU TOUCHED MY MOTHER'S FOOT INTENTIONALLY, YOU ARE BAD BEHAVIOR, I'LL REPORT HEAD OF QUATER ABOUT YOU, YOU SHOULD EMPTY THE BAG (URIN BAG)". REPORTED CHARGE NURSE REGARDING ABOVE THE ISSUES.
[2022-10-20] MEDS: INSULIN REGULAR, HUMAN 100 UNIT/ML 3 ML VIAL SQ PRN ×2 (12:06→17:43)
--- NOTE | 2022-10-20 14:14 | NUR ---
RN MS NOTES RECEIVED REPORT FROM CARLOS LOCKE FOR CONTINUITY OF CARE, PT AWAKE, SITTING IN HER CHAIR, DAUGHTER AT BEDSIDE, CALL LIGHT WITHIN REACH.
--- NOTE | 2022-10-20 14:15 | NUR ---
RN NOTE GIVEN REPORT ROBIN/RN.
[2022-10-20 16:00] VITALS: BP 106/58
--- NOTE | 2022-10-20 18:07 | NUR ---
RN MS NOTES PT IN BED, AWAKE, ALERT AND ORIENTED, DENIES PAIN, NOT IN DISTRESS, CALL LIGHT WITHIN REACH, ATE DINNER, BLOOD SUGAR CHECKED DONE, F/C IN PLACE, DRAINING WELL WITH CLEAR, YELLOW URINE, ALL NEEDS ATTENDED.
--- NOTE | 2022-10-20 19:50 | NUR ---
RN OPENING NOTES RECEIVED PATIENT IN BED AWAKE. A/O X 2-3. PATIENT WITH MID-LINE ON LEFT UPPER ARM; PATENT AND INTACT. PATIENT WITH HERNANDEZ CATHETER; HERNANDEZ WAS ASSESSED; DRAINING YELLOW URINE AND NO REDNESS OR SWELLING ON THE SITE. PATIENT IS IN BED COMFORTABLY NO SIGNS OF DISTRESS AND NO PAIN OF THE MOMENT PER PATIENT. SAFETY MEASURES IN PLACED; BED LOCKED AND IN LOWEST POSITION, CALL LIGHT AND BEDSIDE TABLE WITHIN PATIENTS REACH.
[2022-10-20 20:43] VITALS: BP 122/59
[2022-10-20] MEDS: ZOLPIDEM TARTRATE 5 MG TABLET PO PRN (22:18)
[2022-10-21 06:29] LABS: BASOPHILS # (AUTO) 0.1 K/uL (0.0-0.2); BASOPHILS % (AUTO) 1.1 % (0.0-2.0); EOSINOPHILS % (AUTO) 1.6 % (0.0-6.0); HEMATOCRIT 30 % (33-45); LYMPHOCYTES # (AUTO) 0.6 K/uL (0.8-4.8); LYMPHOCYTES % (AUTO) 12.3 % (20.0-44.0); MEAN CORPUSCULAR HGB CONC 30 g/dl (31.0-36.0); MEAN CORPUSCULAR VOLUME 69 fL (82-100); MONOCYTES # (AUTO) 0.6 K/uL (0.1-1.30); NEUTROPHILS # (AUTO) 3.8 K/uL (1.8-8.9); PLATELET COUNT (AUTO) 429 K/uL (150-450); RED BLOOD CELL COUNT(AUTO) 4.34 MIL/uL (4.0-5.2); WHITE BLOOD COUNT (AUTO) 5.1 K/uL (4.3-11.0)
[2022-10-21 06:39] LABS: CALCIUM, SERUM 8.4 mg/dL (8.5-10.1); CARBON DIOXIDE 31 mmol/L (21-32); CHLORIDE 107 mmol/L (98-107); CREATININE 0.5 mg/dL (0.6-1.3); GLUCOSE 123 mg/dL (74-106); POTASSIUM 4.3 mmol/L (3.5-5.1); SODIUM SERUM 143 mmol/L (136-145); UREA NITROGEN, BLOOD 16 mg/dL (7-18)
[2022-10-21] MEDS: BLOOD SUGAR DIAGNOSTIC 1 EACH STRIP IN SCH ×4 (06:52→21:47)
--- NOTE | 2022-10-21 07:09 | NUR ---
RN CLOSING NOTES PATIENT IN BED AWAKE. A/O X 2-3. PATIENT WITH MID-LINE ON LEFT UPPER ARM; PATENT AND INTACT. PATIENT WITH HERNANDEZ CATHETER; HERNANDEZ WAS ASSESSED; DRAINING YELLOW URINE AND NO REDNESS OR SWELLING ON THE SITE. PATIENT IS IN BED COMFORTABLY NO SIGNS OF DISTRESS AND NO PAIN OF THE MOMENT PER PATIENT. ALL DUE MEDICATIONS ARE GIVEN, ALL NEEDS ARE MET. SAFETY MEASURES IN PLACED; BED LOCKED AND IN LOWEST POSITION, CALL LIGHT AND BEDSIDE TABLE WITHIN PATIENTS REACH. WILL ENDORSE TO NEXT SHIFT FOR CONTINUITY OF CARE.
--- NOTE | 2022-10-21 07:49 | NUR ---
MS RN OPENING NOTE Patient in bed, awake. A/O x 2-3, Georgian speaking. On O2 at 2 LPM via NC, breathing evenly and unlabored. No SOB or s/s of distress noted. IV access on VIRGIE midline SL, intact and patent. Bains catheter in place draining to a yellow colored urine. Safety precautions in place: bed in low, locked position; siderails up x 2; call light within reach. Will continue to monitor.
[2022-10-21 08:00] VITALS: BP 124/74
[2022-10-21] MEDS: GLUCERNA SHAKE 237 ML CAN PO SCH ×2 (08:01→16:54)
[2022-10-21] MEDS: EMPAGLIFLOZIN 25 MG TABLET PO SCH (09:35)
[2022-10-21] MEDS: CARVEDILOL 12.5 MG TABLET PO SCH ×2 (09:35→20:30)
[2022-10-21] MEDS: INSULIN REGULAR, HUMAN 100 UNIT/ML 3 ML VIAL SQ PRN ×2 (11:23→22:24)
--- NOTE | 2022-10-21 18:59 | NUR ---
MS RN CLOSING NOTE Patient in bed, resting. A/O x 2-3, Japanese speaking. On O2 at 2 LPM via NC, breathing evenly and unlabored. No SOB or s/s of distress noted. IV access on VIRGIE midline SL, intact and patent. Bains catheter in place draining to a yellow colored urine. All needs attended to. Due meds given. Wound care done on Right great toe. Safety precautions in place: bed in low, locked position; siderails up x 2; call light within reach. Will endorse to cage shift manager nurse for ERIN.
--- NOTE | 2022-10-21 19:00 | NUR ---
RN OPENING NOTES PATIENT IS AWAKE, A/O X 2-3, SUDANESE SPEAKING. PT ABLE TO MAKE NEEDS KNOWN.PT IN NASAL CANULA OF 3L O2, TOLERATING WELL. BREATHING EVEN AND UNLABORED AT THIS TIME. PT COMPLAINING OF DISCOMFORT FROM SITTING. PT IV ACCESS ON LEFT UPPER ARM MIDLINE, PATENT, INTACT AND FLUSHES WELL WITH NO S/S OF INFILTRATION. ON IV SITE. PT IS ON HERNANDEZ CATHETER IN PLACE DRAINING YELLOW URINE. PT WALKS TO THE BATHROOM IN A WALKER WITH ASSIST FOR BM. SAFETY MEASURES IS IN PLACE. BED PLACED IN LOWEST AND LOCKED POSITION, SIDE RAILS UP BY 2X, BEDSIDE TABLE AND CALL LIGHT IS EASY REACH. BED ALARM IS ON. WILL CONTINUE TO MONITOR PT ACCORDINGLY.
[2022-10-21 20:17] VITALS: BP 115/63
[2022-10-21] MEDS: ZOLPIDEM TARTRATE 5 MG TABLET PO PRN (20:30)
--- NOTE | 2022-10-21 20:31 | NUR ---
CARVEDILOL 12.5 MG TABLET IS HELD DUE TO LOW BP OF 115/63.
--- NOTE | 2022-10-21 22:16 | NUR ---
PT IS HAVING SOB, O2 SAT 96%. CALLED SUSANANH TOBAR FOR BREATHING TREATMENT.
--- NOTE | 2022-10-21 22:25 | NUR ---
INSULIN HELD DUE TO PT GOING TO SURGERY IN THE AM. PT REFUSE TO EAT.
[2022-10-21] MEDS: ALBUTEROL FS 2.5 MG/0.5 ML VIAL.NEB NEB PRN (22:27)
[2022-10-21] MEDS: IPRATROPIUM NEB FS 0.5 MG/2.5 ML AMPUL.NEB NEB PRN (22:27)
--- NOTE | 2022-10-21 22:44 | NUR ---
RT SUSANNAH ON BEDSIDE AT 2210. RT GIVEN BREATHING TREATMENT AND REPORTED TO RN THAT PT IS BREATHING WELL AFTER TREATMENT AND O2 SAT REMAINS AT 96%. PT IS ON NASAL CANULA 2L O2.
[2022-10-22 03:48] VITALS: BP 115/63
[2022-10-22 06:22] LABS: CALCIUM, SERUM 8.1 mg/dL (8.5-10.1); CARBON DIOXIDE 36 mmol/L (21-32); CHLORIDE 105 mmol/L (98-107); CREATININE 0.5 mg/dL (0.6-1.3); GLUCOSE 129 mg/dL (74-106); POTASSIUM 4.2 mmol/L (3.5-5.1); SODIUM SERUM 142 mmol/L (136-145); UREA NITROGEN, BLOOD 14 mg/dL (7-18)
[2022-10-22] MEDS: BLOOD SUGAR DIAGNOSTIC 1 EACH STRIP IN SCH ×2 (06:35→12:00)
--- NOTE | 2022-10-22 06:35 | NUR ---
RN CLOSING NOTES PATIENT IS AWAKE, A/O X 2-3, SWEDISH SPEAKING. PT ABLE TO MAKE NEEDS KNOWN.PT IN NASAL CANULA OF 2L O2, TOLERATING WELL. BREATHING EVEN AND UNLABORED AT THIS TIME. PT IV ACCESS ON LEFT UPPER ARM MIDLINE, PATENT, INTACT AND FLUSHES WELL WITH NO S/S OF INFLITRATION. ON IV SITE. PT IS ON HERNANDEZ CATHETER IN PLACE DRAINING YELLOW URINE. PT WALKS TO THE BATHROOM IN A WALKER WITH ASSIST FOR BM. MEDICATION ADMINISTERED ACCORDINGLY. SAFETY MEASURES IS IN PLACE. BED PLACED IN LOWEST AND LOCKED POSITION, SIDE RAILS UP BY 2X, BEDSIDE TABLE AND CALL LIGHT IS EASY REACH. BED ALARM IS ON. WILL ENDORSE TO THE NEXT SHIFT FOR CONTINUITY OF CARE.
[2022-10-22 07:00] VITALS: BP 146/60
[2022-10-22 07:23] LABS: BASOPHILS % (AUTO) 0.7 % (0.0-2.0); EOSINOPHILS % (AUTO) 1.5 % (0.0-6.0); HEMATOCRIT 30 % (33-45); HEMOGLOBIN 8.9 g/dL (11.5-14.8); LYMPHOCYTES # (AUTO) 0.6 K/uL (0.8-4.8); LYMPHOCYTES % (AUTO) 10.7 % (20.0-44.0); MEAN CORPUSCULAR HGB CONC 30 g/dl (31.0-36.0); MEAN CORPUSCULAR VOLUME 69 fL (82-100); MONOCYTES # (AUTO) 0.6 K/uL (0.1-1.30); MONOCYTES % (AUTO) 11.1 % (2.0-12.0); NEUTROPHILS # (AUTO) 4.2 K/uL (1.8-8.9); PLATELET COUNT (AUTO) 449 K/uL (150-450); RED BLOOD CELL COUNT(AUTO) 4.34 MIL/uL (4.0-5.2); WHITE BLOOD COUNT (AUTO) 5.5 K/uL (4.3-11.0)
--- NOTE | 2022-10-22 07:50 | NUR ---
MS RN OPENING NOTE Patient in bed, awake. A/O x 2-3, Lithuanian speaking. On O2 at 2 LPM via NC, breathing evenly and unlabored. No SOB or s/s of distress noted. IV access on VIRGIE midline SL, intact and patent. Bains catheter in place draining to a yellow colored urine. Patient kept NPO for surgery today. Safety precautions in place: bed in low, locked position; siderails up x 2; call light within reach. Will continue to monitor.
[2022-10-22] MEDS: GLUCERNA SHAKE 237 ML CAN PO SCH (08:00)
[2022-10-22] MEDS: CARVEDILOL 12.5 MG TABLET PO SCH (09:00)
[2022-10-22] MEDS: EMPAGLIFLOZIN 25 MG TABLET PO SCH (09:00)
--- NOTE | 2022-10-22 09:00 | NUR ---
RN NOTE Patient's BP was 146/60, HR 90. Patient is for surgery today at 1100. Verified with anesthesiologist about giving BP medication since patient is NPO. Per anesthesiologist, hold BP medication for now, if BP goes higher they can give it at the OR.
--- NOTE | 2022-10-22 10:30 | NUR ---
RN NOTE Patient brought to OR for surgery.
[2022-10-22] MEDS: ASPIRIN 81 MG TAB.CHEW PO SCH (11:30)
--- NOTE | 2022-10-22 12:00 | NUR ---
ICU/RN CODE BLUE CALLED IN OR. PT IS POST OP ASYSTOLE ON MONITOR .CPR PROVIDED.EPI IV GIVEN , SEE CODE BLUE RECORD. SUCCESSFUL.PT TRANSFER TO ICU.
[2022-10-22] MEDS ORDERED: ATROPINE SULFATE 1 MG/10 ML DISP.SYRIN IV ONE (12:11)
[2022-10-22] MEDS ORDERED: EPINEPHRINE (1:10,000) SYRINGE 1 MG/10 ML DISP.SYRIN IVP ONE ×3 (12:11→12:49)
--- NOTE | 2022-10-22 12:17 | NUR ---
Pt Post Op Wound Debridement: Yeimi Reyes called upon arrival to ICU#253 Pt pulseless. (See code Blue Sheet) Will follow up post op management orders
--- NOTE | 2022-10-22 12:20 | NUR ---
RT PATIENT BROUGHT FROM OR POST OP. ORALLY INTUBATED. PATIENT ARRIVED TO ICU DAYA CLARKE WAS CALLED. CPR INITIATED IMMEDIATELY WITH ROSC OBTAINED. PATIENT PLACED ON [facility] VENT WITH ORDERED SETTINGS AC 16, 500, 100% +0. ALARMS CHECKED AND AUDIBLE. AMBU BAG AT BEDSIDE. PATIENT IN CRITICAL CONDITION. Addendum: 10/22/22 at 1251 by JALEESA BRYAN RT Amended: Links added.
[2022-10-22] MEDS ORDERED: CALCIUM CHLORIDE 1,000 MG/10 ML DISP.SYRIN IV ONE (12:36)
[2022-10-22] MEDS ORDERED: ESMOLOL INJ 100 MG/10 ML VIAL IV ONE (12:40)
--- NOTE | 2022-10-22 12:40 | NUR ---
1240 Code Blue #3 initiated. (see Code Blue Sheet) 1243 ROSC Family decided on DNR status at this time
[2022-10-22] MEDS ORDERED: SODIUM BICARBONATE SYR 50 MEQ/50 ML DISP.SYRIN IV ONE (12:49)
--- NOTE | 2022-10-22 13:00 | NUR ---
ICU/RN PT POST OP CODED 3 TIMES.FAMILY AT BED SIDE.OK TO PUT PT DNR. MD NOTIFIED CODE STATUS CHANGED.
--- NOTE | 2022-10-22 13:09 | NUR ---
Pt DNR. Family @ bedside. Pt HR presented with Asystole. Will notify PMD to pronounce
--- NOTE | 2022-10-22 13:20 | NUR ---
RT RT CALLED TO TURN OFF VENT. PATIENT WAS DNR AND . CHUCKY VELEZ AWARE.
--- NOTE | 2022-10-22 13:26 | NUR ---
[facility] called to notify and report expiration. Okay to release body per "[facility]"; Case#[id number]
--- NOTE | 2022-10-22 14:42 | NUR ---
[employer]frame [employer] Powerplant Mechanic's Office Called spoke to Carolyne Nichole @ [employer]; Instructed to notify surgeon who performed surgery (Piter Adames) call the glass robot operator's office surgical clearance line. to provide pertinent pt information pertaining to case called and spoke to surgeon's office, who will relay message to MD LARSON.
--- NOTE | 2022-10-22 17:24 | NUR ---
Profiling Machine Set Up Operator Office Update: Left message with the "urgent investigation inquiry" office to call back Dr Brewer back at [phone] for "surgical clearance"
== END 2022-10-22 18:49 | DRG 981 ==
LOC: ER 10:17 → TELE 12:16 → ICU 10-18 08:18 → TELE 10-19 11:25 → MED 10-20 10:21 → ICU 10-22 12:38
PROVIDERS: ADMIT Nurse Practitioner Acute Care; ATTEND Nurse Practitioner Acute Care
PROC: 05HB33Z Insertion of Infusion Device into Right Basilic Vein, Percutaneous Approach (ICD-10-PCS; 2022-10-16)
PROC: 0W9B3ZX Drainage of Left Pleural Cavity, Percutaneous Approach, Diagnostic (ICD-10-PCS; principal; 2022-10-17)
PROC: 0Y6P0Z1 Detachment at Right 1st Toe, High, Open Approach (ICD-10-PCS; 2022-10-22)
DX: J15.9 Unspecified bacterial pneumonia (principal); E43 Unspecified severe protein-calorie malnutrition; I50.33 Acute on chronic diastolic (congestive) heart failure; J96.01 Acute respiratory failure with hypoxia; E11.52 Type 2 diabetes mellitus with diabetic peripheral angiopathy with gangrene; J98.11 Atelectasis; J90 Pleural effusion, not elsewhere classified; I82.621 Acute embolism and thrombosis of deep veins of right upper extremity; I82.611 Acute embolism and thrombosis of superficial veins of right upper extremity; I11.0 Hypertensive heart disease with heart failure; Z66 Do not resuscitate; Z53.8 Procedure and treatment not carried out for other reasons; I25.10 Atherosclerotic heart disease of native coronary artery without angina pectoris; Z95.5 Presence of coronary angioplasty implant and graft; I48.91 Unspecified atrial fibrillation; Z20.822 Contact with and (suspected) exposure to COVID-19; I25.2 Old myocardial infarction; H54.62 Unqualified visual loss, left eye, normal vision right eye; Z79.82 Long term (current) use of aspirin; Z79.899 Other long term (current) drug therapy; E83.51 Hypocalcemia; E78.00 Pure hypercholesterolemia, unspecified; E88.09 Other disorders of plasma-protein metabolism, not elsewhere classified; F03.90 Unspecified dementia, unspecified severity, without behavioral disturbance, psychotic disturbance, mood disturbance, and anxiety; F09 Unspecified mental disorder due to known physiological condition; I80.8 Phlebitis and thrombophlebitis of other sites; D64.9 Anemia, unspecified; Z79.2 Long term (current) use of antibiotics
CPT/HCPCS: 36410; 36415; 36600; 71045-TC; 71111-TC; 80048-TC; 80053-TC; 80061-TC; 80076-TC; 80202-TC; 82728-TC; 82962-TC; 83540-TC; 83605-TC; 83735-TC; 83880; 84100-TC; 84439-TC; 84443-TC; 84484-TC; 85025-TC; 85610-TC; 85730-TC; 86850-TC; 87040-TC; 87081-TC; 87102-TC; 88108-TC; 88305-TC; 88311-TC; 88312-TC; 89051-TC; 92950-TC; 93307-TC; 93971-TC; 94002-TC; 94799-TC; A4223; A6403; C9803; G0378; G0463; J0171; J0461; J0692; J1815; J1940; J2001; J2185; J2704; J3370; J3490; J7030; J7040; J7050; J7060